=== PATIENT | female | born 1990 | race Caucasian/White ===

== ENCOUNTER → 2017-11-15 | Outpatient (CLI) | payer OTHER ==
[~2017-11-15] MED LIST: ONDA4ODT MM; Pseudoephedrine30 MG PO
[2017-11-15 12:13] LABS: Source, Urine Clean Catch
[2017-11-15 13:01] LABS: Bilirubin, Urine Neg (Neg); Blood, Urine 2+ (Neg); Glucose Qualitative, Urine Neg (Neg); Ketones, Urine Neg (Neg); Leukocyte Esterase, Urine 3+ (Neg); Nitrite, Urine Neg (Neg); Protein, Urine 2+ (Neg); Urobilinogen, Urine NORM (Normal)
[2017-11-15 13:12] LABS: Appearance, Urine Cloudy (Clear); Color, Urine Yellow (P-Yellow)
[2017-11-15 13:16] LABS: Bacteria Mod /hpf; Squamous Epithelial Cells Many /hpf (Few); White Blood Cells, Urine 25-50 /hpf (0-5); Yeast/Fungi Urine Few /hpf
[2017-11-15 15:18] LABS: Candida species (DNA Probe) Positive (NEGATIVE); G. vaginalis (DNA Probe) Positive (NEGATIVE); T. vaginalis (DNA Probe) Negative (NEGATIVE)
== END | disposition home or self-care (01) ==
LOC: LAB SHORT 12:06 → LAB 12:06
PROVIDERS: Advanced Practice Midwife
DX: N76.0 Acute vaginitis (principal); R82.99 Other abnormal findings in urine
CPT/HCPCS: 81001; 87070; 87086; 87205; 87480; 87510; 87660

== ENCOUNTER → 2017-11-19 | Outpatient (CLI) | payer OTHER ==
[2017-11-19 11:43] LABS: Source, Urine Clean Catch
[2017-11-19 13:15] LABS: Bilirubin, Urine Neg (Neg); Blood, Urine Neg (Neg); Glucose Qualitative, Urine Neg (Neg); Ketones, Urine Neg (Neg); Leukocyte Esterase, Urine 1+ (Neg); Nitrite, Urine Neg (Neg); Protein, Urine Neg (Neg); Urobilinogen, Urine NORM (Normal)
[2017-11-19 13:27] LABS: Appearance, Urine Clear (Clear); Color, Urine Yellow (P-Yellow)
[2017-11-19 13:29] LABS: Bacteria Rare /hpf; Red Blood Cells, Urine 0-2 /hpf (0-2); Squamous Epithelial Cells Few /hpf (Few); White Blood Cells, Urine 0-2 /hpf (0-5)
== END | disposition home or self-care (01) ==
LOC: LAB 11:37 → LAB SHORT 11:37
PROVIDERS: Advanced Practice Midwife
DX: R82.90 Unspecified abnormal findings in urine (principal)
CPT/HCPCS: 81001; 87086

== ENCOUNTER → 2018-04-28 | Outpatient (CLI) | payer OTHER | END | disposition home or self-care (01) | LOC: LAB SHORT 18:03 → LAB EV 18:03 | DX: N39.0 Urinary tract infection, site not specified (principal) | CPT/HCPCS: 87077; 87086; 87186 ==

== ENCOUNTER 2018-07-23 11:56 | Emergency (ER) | payer OTHER ==
[~2018-07-23] VITALS: Ht 177.8 cm; Wt 108.9 kg
[~2018-07-23 11:56] MED LIST changes: +AZIT250 PO
[2018-07-23] MEDS ORDERED: Norco 5-325 Ta1 EACH PO (12:42)
== END 2018-07-23 12:46 | disposition home or self-care (01) ==
LOC: ER 11:56
DX: J18.9 Pneumonia, unspecified organism (principal)
CPT/HCPCS: 71046; 99284-25

== ENCOUNTER 2019-12-21 10:28 | Emergency (ER) | payer OTHER ==
[~2019-12-21] VITALS: Ht 177.8 cm; Wt 113.4 kg
[~2019-12-21 10:28] MED LIST changes: +Norco 5-325 Ta1 EACH PO
[2019-12-21] MEDS ORDERED: Robaxin750 MG PO (10:51)
[2019-12-21] MEDS ORDERED: HYDR1TAB94 PO (12:39)
[2019-12-21] MEDS ORDERED: Valium5 MG PO (12:39)
== END 2019-12-21 13:36 | disposition home or self-care (01) ==
LOC: ER 10:28
DX: M43.6 Torticollis (principal); Z88.2 Allergy status to sulfonamides; Z88.1 Allergy status to other antibiotic agents
CPT/HCPCS: 72040; 96372-59; 99283-25; J1885; J3360